=== PATIENT | female | born 1975 | race Native Hawaiian/Other Pacific Islander ===

== ENCOUNTER 2017-04-14 08:14 | Inpatient (IN) | payer OTHER ==
[2017-04-14] MEDS ORDERED: Midazolam 2 MG/2 ML VIAL ONE (09:14)
[2017-04-14] MEDS ORDERED: Rocuronium 10 mg/ml (5 ml) ONE (09:14)
[2017-04-14] MEDS ORDERED: Propofol 10 mg/ml Inj (20 ML) ONE (09:14)
[2017-04-14] MEDS ORDERED: cefOXitin IV 2 gm in Dextrose 2 GM/50 ML BAG IVPB ONE (09:28)
[2017-04-14] MEDS ORDERED: Lactated Ringer's 1,000 ML IV ONE ×5 (09:49→14:15)
[2017-04-14] MEDS ORDERED: Methylene Blue 10 mg/mL(10ml) IV ONE (11:27)
[2017-04-14] MEDS ORDERED: Morphine 4 MG/ML VIAL ONE (12:20)
[2017-04-14 13:30] LABS: BASO % 0.2 % (0.0-2.0); HEMATOCRIT 33.1 % (34.0-47.0); LYMPH # 1.4 K/uL (1.0-4.3); LYMPH % 7.6 % (20.0-40.0); MEAN CELL VOLUME 82.9 fL (81.0-99.0); MEAN CORPUSCULAR HEMOGLOBIN 27.8 pg (27.0-31.0); MEAN CORPUSCULAR HGB CONC 33.5 g/dL (33.0-37.0); MEAN PLATELET VOLUME 10.5 fL (7.2-11.7); MONO # 0.4 K/uL (0.0-0.8); PLATELET COUNT 172 K/uL (130-400); RED CELL DISTRIBUTION WIDTH 16.1 % (11.5-14.5); WHITE BLOOD COUNT 18.9 K/uL (4.8-10.8)
[2017-04-14 13:55] LABS: NEUTROPHIL 91 % (50-75); TOTAL CELLS COUNTED 100
[2017-04-14 13:56] LABS: LARGE PLATELETS PRESENT
[2017-04-14] MEDS: HYDROmorphone 0.5 mg/0.5 ml ISec IVP PRN ×2 (15:05→15:51)
[2017-04-14] MEDS ORDERED: Oxycodone/Acetaminophen 5/325 mg Tab PO PRN (15:34)
[2017-04-14] MEDS ORDERED: cefOXitin IV 2 gm in Dextrose 2 GM/50 ML BAG IVPB SCH (15:45)
[2017-04-14] MEDS ORDERED: HYDROmorphone 0.5 mg/0.5 ml ISec ONE (15:51)
[2017-04-14] MEDS ORDERED: Lactated Ringer's 1,000 ML IV SCH (16:00)
[2017-04-14] MEDS: cefOXitin IV 2 gm in Dextrose 2 GM/50 ML BAG IVPB SCH (18:02)
[2017-04-14] MEDS: Simethicone 80 mg Chewtab PO SCH ×2 (18:11→21:36)
[2017-04-14] MEDS: Oxycodone/Acetaminophen 5/325 mg Tab PO PRN (23:51)
[2017-04-15] MEDS: cefOXitin IV 2 gm in Dextrose 2 GM/50 ML BAG IVPB SCH ×2 (01:44→09:04)
--- NOTE | 2017-04-15 07:45 | CP.PCM.PN ---
Subjective - Date & Time of Evaluation Date of Evaluation: 04/15/17 Time of Evaluation: 07:40 - Subjective Subjective: Patient was seen and examined at bedside. Patient is s/p YESSI, B/L salphingectomy and Left oophrectomy POD #1. Patient reports that she is doing well and that her pain is well-controlled. Patient denies chest pain, palpitations, sob, dizziness, nausea, vomiting, fever, chills, passing of flatus , BM. Patient's martinez was discontinued this morning. Patient has been out of bed and was able to ambulate without any difficulty. Objective - Vital Signs/Intake and Output Vital Signs (last 24 hours): Temp Pulse Resp BP Pulse Ox 99.3 F 95 H 18 107/74 98 04/14/17 23:41 04/14/17 23:41 04/14/17 23:41 04/14/17 23:41 04/14/17 23:41 Intake and Output: 04/15/17 04/15/17 06:59 18:59 Intake Total 1825 Output Total 1740 Balance 85 - Medications Medications: Current Medications Bisacodyl (Dulcolax) 10 mg WI ONCE ONE Stop: 04/15/17 21:01 Docusate Sodium (Colace) 100 mg PO BID [facility] Ferrous Sulfate (Feosol) 325 mg PO DAILY [facility] Cefoxitin Sodium (Mefoxin Iv 2 Gm Duplex) 2 gm in 50 mls @ 50 mls/hr IVPB Q8H [facility] Stop: 04/15/17 10:59 Last Admin: 04/15/17 01:44 Dose: 50 mls/hr Lactated Ringer's (Lactated Ringer's) 1,000 mls @ 125 mls/hr IV .Q8H [facility] Ibuprofen (Motrin Tab) 600 mg PO Q4 PRN PRN Reason: Pain, Mild (1-3) Oxycodone/Acetaminophen (Percocet 5/325 Mg Tab) 2 tab PO Q4H PRN PRN Reason: Pain, severe (8-10) Stop: 04/17/17 15:35 Oxycodone/Acetaminophen (Percocet 5/325 Mg Tab) 1 tab PO Q4H PRN PRN Reason: Pain, moderate (4-7) Stop: 04/17/17 15:35 Last Admin: 04/14/17 23:51 Dose: 1 tab Simethicone (Mylicon Chew Tab) 80 mg PO QID [facility] Last Admin: 04/14/17 21:36 Dose: 80 mg - Labs Labs: 04/14/17 13:06 - Constitutional Appears: Well, No Acute Distress - Head Exam Head Exam: ATRAUMATIC, NORMAL INSPECTION - Eye Exam Eye Exam: EOMI - ENT Exam ENT Exam: Mucous Membranes Moist - Respiratory Exam Respiratory Exam: Clear to Ausculation Bilateral, NORMAL BREATHING PATTERN - Cardiovascular Exam Cardiovascular Exam: REGULAR RHYTHM, +S1, +S2 - GI/Abdominal Exam GI & Abdominal Exam: Tenderness (Appropriately tender ), Normal Bowel Sounds - Extremities Exam Extremities Exam: Normal Inspection. absent: Calf Tenderness, Pedal Edema - Neurological Exam Neurological Exam: Alert, Awake, Oriented x3 - Psychiatric Exam Psychiatric exam: Normal Affect, Normal Mood - Skin Skin Exam: Normal Color Assessment and Plan - Assessment and Plan (Free Text) Assessment: Patient is a 41 year old female who is s/p YESSI, B/L salphingectomy and Left oophrectomy POD #1 with pre-op diagnosis of anemia, fibroids and abnormal uterine bleeding. Plan: 1. Stable, Afebrile 2. Pain is control 3. Encourage ambulation and incentive spirometry 4. Voiding trial s/p martinez discontinue 5. F/u am CBC 6. Anticipating discharge tomorrow 7. Plans discussed with attending Jacquie David, PGY-1
[2017-04-15 08:32] LABS: BASO % 0.1 % (0.0-2.0); HEMATOCRIT 28.1 % (34.0-47.0); LYMPH % 7.5 % (20.0-40.0); MEAN CELL VOLUME 83.4 fL (81.0-99.0); MEAN CORPUSCULAR HEMOGLOBIN 28.2 pg (27.0-31.0); MEAN CORPUSCULAR HGB CONC 33.8 g/dL (33.0-37.0); MEAN PLATELET VOLUME 10.5 fL (7.2-11.7); MONO # 0.7 K/uL (0.0-0.8); MONO % 5.1 % (0.0-10.0); PLATELET COUNT 145 K/uL (130-400); RED CELL DISTRIBUTION WIDTH 15.6 % (11.5-14.5)
[2017-04-15] MEDS: Oxycodone/Acetaminophen 5/325 mg Tab PO PRN ×3 (09:00→20:41)
[2017-04-15 09:32] LABS: NEUTROPHIL 88 % (50-75); TOTAL CELLS COUNTED 100
[2017-04-15 09:34] LABS: LARGE PLATELETS PRESENT
[2017-04-15] MEDS: Simethicone 80 mg Chewtab PO SCH ×4 (10:16→21:52)
--- NOTE | 2017-04-15 10:18 | OP ---
PROCEDURE DATE: 04/14/2017 PREOPERATIVE DIAGNOSES: 1. Menorrhagia. 2. Pelvic pain. 3. Anemia. 4. Fibroid uterus. POSTOPERATIVE DIAGNOSES: 1. Menorrhagia. 2. Pelvic pain. 3. Anemia. 4. Fibroid uterus. 5. Dense adhesions between the uterus and the anterior abdominal wall. PROCEDURE PERFORMED: Total abdominal hysteroscopy, bilateral salpingectomy and left oophorectomy, lysis of adhesions. SURGEON: Regis Mojica MD SENIOR NET WEB DEVELOPER: Leo Vivas MD Please note that the procedure required a surgical aides teacher to assist with entry into the abdominal cavity and to assist with the lysis of adhesions and also to assist with the hysterectomy as well as to assist with the closure of the abdominal wall. The surgical aides teacher was present and scrubbed for the entire duration of the procedure. TYPE OF ANESTHESIA: General endotracheal. ANESTHESIOLOGIST: Dr. Pérez Caceres. SPECIMENS: Uterus with cervix, right and left fallopian tubes with left ovary. PROCEDURE IN DETAIL: After informed consent was obtained, the patient was taken to the operating room and placed in dorsal supine position. General anesthesia was then induced and the patient was intubated without any difficulty. The patient was then prepped and draped in the usual sterile manner. A Valdez catheter was placed transurethrally for bladder drainage. The vaginal prep was done with Betadine and the abdominal prep was done with chlorhexidine. After the patient was draped, the previous Pfannenstiel skin incision was made and this was carried down to the underlying layer of the fascia with the help of the Bovie. The fascia was then incised in the midline and the incision was extended laterally with the help of Bovie as well. The superior aspect of the fascial incision was then grasped with Clarence clamps. elevated and the underlying rectus muscle was dissected off. Attention was then turned to the inferior aspect of the fascia. The incision was then grasped with Clarence clamps. elevated and the underlying rectus muscle was dissected off. The rectus muscle was then extended up in the midline with the help of Son clamp and sharply superiorly in the midline. In the inferior portion, the rectus muscle was densely adherent to each other as well as to the underlying abdominal tissues. Sharp dissection was thereafter carried out to dissect and separate the rectus muscle once inside also. Dense adhesions were noted to the rectus muscle from the uterus. These adhesions were serially clamped, cut and suture ligated. Approximately, one hour was spent performing the lysis of adhesions between the uterus and the anterior abdominal wall. Once the uterus was noted to be free of the adhesions, then decision was made to proceed with the hysterectomy. The uterus was just noted to be approximately 16-week size, was delivered out of the patient's abdomen. Corkscrew was placed into the uterine fundus to survey the means of manipulation. The right round ligament was clamped, cut and suture ligated. Similar procedure was repeated on the left side. The right utero-ovarian ligament was also clamped, cut and sutured ligated. Thereafter, dissection was carried down to create a bladder flap, which had already been partially dissected while performing the lysis of adhesions. Once the bladder was dissected away from the lower uterine segment, the uterine arteries were skeletonized from the right side. Similar procedure was thereafter repeated on the left side. At this point, it was determined that the bladder was dissected away from the lower uterine segment. The right uterine artery was clamped, cut and suture ligated. Similar procedure was repeated on the left side. Thereafter, multiple serial bytes were taken parallel and inside the previous byte onto the uterine surface and then into the cervix informing the cardinal ligament and then the uterosacral ligament. Two Son clamps were thereafter placed at the base and the uterus and the cervix were amputated off the vaginal cuff. The vaginal cuff was thereafter closed with 2-0 Vicryl in a running fashion and the edges were run, but then the cuff was closed with 0-Vicryl with [id number] stitches. Adequate hemostasis was noted from the vaginal cuff repair. The pedicles were then inspected for hemostasis and adequate hemostasis was noted from it. The right fallopian tube, which was adherent to the ovary, was clamped with Charity clamps and then cut and then the pedicles were sutured ligated. Adequate hemostasis was noted. The left ovary was noted to be enlarged and also there was a cyst, which was noted on the left ovary as well. At this point, the fallopian tube on the left side was also found to be very densely adherent to the left ovary. During the dissection of the fallopian tube, bleeding was noted and thereafter decision was made to perform left salpingo-oophorectomy. The IP ligament was doubly clamped, then cut and suture ligated paying careful attention to the positron of the ureter. Adequate hemostasis was noted from this repair. The peritoneum near the IP ligament was also torn and oozy, and this was also suture ligated with 2-0 Vicryl. At this point, the pelvis was copiously irrigated and suctioned. All the dissected areas were inspected for hemostasis and adequate hemostasis were noted from them. Surgiflo was thereafter closed over the vaginal cuff. The laps, which were used to pack the wall after the removal of the uterus and the cervix were removed. The peritoneum and the muscle layers were reapproximated in a mass closure using 2-0 Polysorb. The fascia was therefore closed with 0 Vicryl in running fashion. The subcutaneous tissue was reapproximated with 2-0 Polysorb in a running fashion. The skin was closed with 4-0 Monocryl in subcuticular manner. The sponge, lap, needle and instrument count was correct x3 as reported to me. Regis oMjica MD
[2017-04-15 16:14] VITALS: O2SAT 99
[2017-04-16 08:12] VITALS: BP 107/73; PULSE 91; RESP 18; TEMP 97.9
[2017-04-16] MEDS: Simethicone 80 mg Chewtab PO SCH (09:31)
[2017-04-16] MEDS ORDERED: Influenza Vaccine 60 mcg/0.5 mL SYR (4YR UP) IM ONE (09:50)
== END 2017-04-16 11:05 | disposition home or self-care (01) | DRG 359 ==
LOC: C.9S 08:14 → EDSTATUS 09:30 → C.4M 16:36
PROVIDERS: ADMIT Student in an Organized Health Care Education/Training Program; ATTEND Student in an Organized Health Care Education/Training Program
PROC: 0UT10ZZ Resection of Left Ovary, Open Approach (ICD-10-PCS; 2017-04-14)
PROC: 0UT70ZZ Resection of Bilateral Fallopian Tubes, Open Approach (ICD-10-PCS; 2017-04-14)
PROC: 0UN90ZZ Release Uterus, Open Approach (ICD-10-PCS; 2017-04-14)
PROC: 0UTC0ZZ Resection of Cervix, Open Approach (ICD-10-PCS; 2017-04-14)
PROC: 0UT90ZZ Resection of Uterus, Open Approach (ICD-10-PCS; principal; 2017-04-14 09:30)
DX: D25.9 Leiomyoma of uterus, unspecified (principal); N73.6 Female pelvic peritoneal adhesions (postinfective); N83.12 Corpus luteum cyst of left ovary; N83.02 Follicular cyst of left ovary; D64.9 Anemia, unspecified; N92.0 Excessive and frequent menstruation with regular cycle